=== PATIENT | male | born 1990 | race Two or more races ===

== ENCOUNTER 2020-06-21 10:44 | Emergency (ER) | payer SELFPAY ==
[~2020-06-21] VITALS: Ht 162.6 cm; Wt 100.1 kg
[2020-06-21 10:48] VITALS: BP 132/78
[2020-06-21] MEDS ORDERED: DEXAMETHASONE 4 MG TABLET ONE (10:56)
[2020-06-21] MEDS ORDERED: DEXAMETHASONE 4 MG TABLET PO ONE (11:00)
== END 2020-06-21 11:09 | disposition home or self-care (01) ==
LOC: ED 11:04
DX: B34.9 Viral infection, unspecified (principal); Z20.828 Contact with and (suspected) exposure to other viral communicable diseases; J02.9 Acute pharyngitis, unspecified
CPT/HCPCS: 87635; 99283